=== PATIENT | female | born 1955 | race Caucasian/White ===

== ENCOUNTER → 2020-09-07 15:11 | Outpatient (CLI) | payer MEDICARE, SELFPAY ==
--- NOTE | 2020-09-07 15:21 | XR_ITS ---
PROCEDURE: XR FOOT WT BEARING LT 3V CLINICAL INDICATION: foot pain COMPARISON: No exams were available for comparison FINDINGS: No fracture or dislocation. No lytic or blastic change. There is normal mineralization. The joint spaces are well-preserved. No significant degenerative/arthritic changes. No erosive changes evident. Other findings:Calcaneal spur is noted. IMPRESSION: No acute findings. Dictated by: Yumiko Nguyen 09/07/2020 16:26 Yumiko Nguyen in OV 09/07/2020 16:26
--- NOTE | 2020-09-07 15:21 | XR_ITS ---
PROCEDURE: XR FOOT WT BEARING RT 3V CLINICAL INDICATION: foot pain COMPARISON: No exams were available for comparison FINDINGS: No fracture or dislocation. No lytic or blastic change. Mild osteopenia. Degenerative changes of the ankle joint. Calcaneal spur is noted. No significant soft tissue abnormality. IMPRESSION: Degenerative changes of the ankle joint. No acute fractures or dislocations. Osteopenia. Dictated by: Yumiko Nguyen 09/07/2020 16:26 Yumiko Nguyen in OV 09/07/2020 16:26
--- NOTE | 2020-09-07 15:21 | XR_ITS ---
PROCEDURE: XR ANKLE WT BEARING RT MIN 3V CLINICAL INDICATION: ankle pain COMPARISON: No exams were available for comparison FINDINGS: No acute fractures or dislocations. There are moderate to severe arthritic changes of the tibiotalar joint. Multiple subchondral cystic changes noted. Sclerosis in of the talar dome. Mild osteopenia is noted. Focal metallic density is noted within the lateral malleolus, likely sequela of prior injury. Calcaneal spur and Achilles tendon enthesopathy Calcaneal spurring is noted at the Achilles tendon insertion and the plantar fascia origin. Visualized soft tissues IMPRESSION: Are unremarkable. Sequela of prior injury. Moderate degenerative changes of the ankle joint. Dictated by: Yumiko Nguyen 09/07/2020 16:24 Yumiko Nguyen in OV 09/07/2020 16:24
--- NOTE | 2020-09-07 15:21 | XR_ITS ---
PROCEDURE: XR ANKLE WT BEARING LT MIN 3V CLINICAL INDICATION: ankle pain COMPARISON: No exams were available for comparison FINDINGS: No acute fractures or dislocations. Bone density is normal. The ankle mortise is intact and the lateral clear space is preserved. Sequela of old fracture of the left distal fibula. Calcaneal spurring is noted at the Achilles tendon insertion and the plantar fascia origin. No significant soft tissue abnormality is noted. IMPRESSION: No acute findings. Dictated by: Yumiko Nguyen 09/07/2020 16:23 Yumiko Nguyen in OV 09/07/2020 16:23
== END ==
PROVIDERS: PCP Internal Medicine; Visit Provider Podiatrist
DX: M25.572 Pain in left ankle and joints of left foot; M25.571 Pain in right ankle and joints of right foot; M79.672 Pain in left foot; M79.671 Pain in right foot
CPT/HCPCS: 73610; 73630

== ENCOUNTER → 2021-01-09 12:49 | Outpatient (CLI) | payer MEDICARE, SELFPAY ==
--- NOTE | 2021-01-09 12:51 | US_ITS ---
APPROVED REPORT Exam Type: Ankle to Brachial Index Medical Appointment Scheduler: Niecy Garcia RT(R) Indications Claudication: Right Rest Pain: Right chronic right leg pain post compound fracture of rt tibia >10 years ago. Risk Factors Hypertension Obesity Diabetes Pressures/Indices Right Indices Left Indices Brachial 140.00 mmHg Brachial 142.00 mmHg Low Thigh 151.00 mmHg 1.06 Low Thigh 148.00 mmHg 1.04 Calf 150.00 mmHg 1.06 Calf 152.00 mmHg 1.07 Ankle(PT) 152.00 mmHg 1.07 Ankle(PT) 153.00 mmHg 1.08 Ankle(DP) 142.00 mmHg 1.00 Ankle(DP) 140.00 mmHg 0.99 Digit 124.00 mmHg 0.87 Digit 106.00 mmHg 0.75 Findings RT BECKY=1.1 LT BECKY=1.1 RT TBI=0.9 LT TBI=0.8 Normal pulses Normal waveforms Conclusion RT BECKY=1.1 LT BECKY=1.1 RT TBI=0.9 LT TBI=0.8 Normal pulses Normal waveforms Normal appearing resting noninvasive lower extremity arterial study. Electronically signed by : Eric Mariee MD 01/09/2021 16:49:43
== END ==
PROVIDERS: Visit Provider Podiatrist
DX: R09.89 Other specified symptoms and signs involving the circulatory and respiratory systems (principal)
CPT/HCPCS: 93923

== ENCOUNTER → 2021-11-20 15:22 | Outpatient (CLI) | payer MEDICARE, SELFPAY ==
--- NOTE | 2021-11-20 15:27 | XR_ITS ---
FINAL REPORT CLINICAL HISTORY: cough FINDINGS: PA and lateral views of the chest are obtained. There is no prior exam for comparison. The cardiac and mediastinal silhouettes are within normal limits. The lungs are clear. There is no pleural effusion, pneumothorax, or acute osseous abnormality. IMPRESSION: No radiographic evidence of acute cardiac or pulmonary disease. Reviewed, Interpreted and Dictated by Susie Donaldson MD Transcribed by Roxy Umana Authenticated and [facility]
--- NOTE | 2021-11-20 15:27 | XR_ITS ---
FINAL REPORT CLINICAL HISTORY: heel pain FINDINGS: Axial and lateral views of the right calcaneus were obtained. There is no prior exam for comparison. There is no acute fracture or other acute osseous abnormality. There is degenerative joint disease. Calcaneal spurs are identified. The soft tissues are unremarkable. IMPRESSION: Degenerative joint disease without acute osseous abnormality. Reviewed, Interpreted and Dictated by Susie Donaldson MD Transcribed by Roxy Umana Authenticated and [facility]
--- NOTE | 2021-11-20 15:27 | XR_ITS ---
FINAL REPORT CLINICAL HISTORY: foot pain COMPARISON: 09/07/2020 FINDINGS: RIGHT FOOT Three views were obtained. There is no acute fracture or dislocation. The bones are osteopenic. There is mild joint degenerative disease, unchanged. There is no soft tissue abnormality. IMPRESSION: Degenerative joint disease, unchanged. Reviewed, Interpreted and Dictated by Susie Donaldson MD Transcribed by Roxy Umana Authenticated and [facility]
[2021-11-20 16:46] LABS: Basophils # 0.1 K/mm3 (0-0.2); Eosinophils # 0.5 K/mm3 (0.0-0.4); Eosinophils % 4.6 % (0.1-12.0); Hemoglobin 13.9 g/dL (12.2-16.2); Lymphocytes # 2.9 K/mm3 (0.7-4.5); Lymphocytes % 29.5 % (10-50); Mean Platelet Volume 7.3 fl (7.4-10.4); Monocytes # 0.4 K/mm3 (0.1-1.0); Monocytes % 4.2 % (1.7-9.3); Neutrophils # 5.9 K/mm3 (1.8-7.8); Neutrophils % 60.6 % (37.0-80.0); Platelet Count 272 K/mm3 (142-424); Red Blood Count 4.62 M/mm3 (4.20-5.40); Red Cell Distribution Width 13.3 % (11.5-17.5); White Blood Count 9.8 K/mm3 (4.8-10.8)
[2021-11-20 17:11] LABS: Alanine Aminotransferase 12 U/L (12-78); Albumin Level 3.9 g/dl (3.5-5.0); Albumin/Globulin Ratio 1.4 (1.1-1.8); Alkaline Phosphatase 97 U/L (38-126); Anion Gap 8.4 mEq/L (5-15); Aspartate Amino Transferase 21 U/L (14-36); Blood Urea Nitrogen 15 mg/dl (7-17); Calcium 9.2 mg/dl (8.4-10.2); Carbon Dioxide 27 mmol/L (22.0-30.0); Chloride 107 mmol/L (98-107); Estimated Glomerular Filt Rate 71 ml/min (>60); GFR (African American) 86 ML/MIN (>60); Globulin 2.7 g/dL (1.3-3.2); Glucose 128 mg/dl (74-100); Potassium 4.4 mmoL/L (3.5-5.1); Sodium 138 mmol/L (136-145); Total Protein,Serum 6.6 g/dl (6.3-8.2)
[2021-11-20 17:18] LABS: C-Reactive Protein 3.3 mg/L (0-4)
[2021-11-20 17:19] LABS: Bilirubin,Total < 0.1 mg/dl (0.2-1.3)
[2021-11-20 17:22] LABS: Hemoglobin A1C 6.4 % (4.0-6.0)
[2021-11-20 18:00] LABS: Erythrocyte Sedimentation Rate 20 mm/hr (0-30)
== END ==
PROVIDERS: PCP Internal Medicine; Visit Provider Podiatrist
DX: Z01.818 Encounter for other preprocedural examination (principal); E11.65 Type 2 diabetes mellitus with hyperglycemia; M79.671 Pain in right foot
CPT/HCPCS: 36415; 71046; 73630; 73650; 80053; 83036; 85025; 85651; 86140

== ENCOUNTER → 2021-12-17 11:57 | Outpatient (CLI) | payer MEDICARE, SELFPAY ==
--- NOTE | 2021-12-17 12:07 | ECG_ITS ---
APPROVED REPORT Exam: Resting ECG HR:56 bpm ECG Measurements Heart Rate 56 AXES FL 160 P 49 QRSd 144 QRS 6 QT 434 T 5 QTc 426 Conclusion SINUS BRADYCARDIA WITH SINUS ARRHYTHMIA RBBB ABNORMAL ECG UNCONFIRMED REPORT Electronically signed by : Gunnar Winter MD 12/17/2021 12:45:48
--- NOTE | 2021-12-17 12:34 | XR_ITS ---
FINAL REPORT CLINICAL HISTORY: PREOP TESTING COMPARISON: September 07, 2020 FINDINGS: RIGHT ANKLE Three views of the right ankle were obtained. There is no acute fracture or dislocation. There is moderate narrowing of the mortise. There is hypertrophic changes at the talonavicular joint. There is a small to moderate plantar spur. IMPRESSION: Degenerative changes with no acute bony abnormality. Reviewed, Interpreted and Dictated by Cristino Solorio MD Transcribed by Moriah Burnett Authenticated and [facility]
== END ==
PROVIDERS: Visit Provider Podiatrist
DX: Z01.818 Encounter for other preprocedural examination (principal); Z20.822 Contact with and (suspected) exposure to COVID-19; M19.071 Primary osteoarthritis, right ankle and foot
CPT/HCPCS: 73610; 93005; C9803; U0003; U0005

== ENCOUNTER 2021-12-19 14:56 | Observation (INO) | payer MEDICARE, SELFPAY ==
[2021-12-17 09:29] VITALS: BMI 36.0
[2021-12-19] VITALS (21 sets, daily range): BP systolic 113–153; BP diastolic 57–83; PULSE 62–79; RESP 10–18; TEMP 36.5–43; O2SAT 93–100; BMI 38.1
[2021-12-19 10:03] LABS: POC Glucose,Bedside 138 (70-110)
--- NOTE | 2021-12-19 12:09 | EXP.ANES.CKL ---
[facility] Medical History Cataract Diabetes mellitus, type 2 Hyperlipidemia Hypertension Sacral nerve stimulator present Surgical History (Updated 12/19/21 @ 09:52 by Afsaneh Martinez, RN) History of hysterectomy History of lumpectomy Hx of arthroscopy Family History (Updated 12/19/21 @ 09:52 by Afsaneh Martinez, RN) Other Family history of cancer Family history of diabetes mellitus type II Family history of myocardial infarction Social History (Updated 12/19/21 @ 09:52 by Afsaneh Martinez RN) Smoking Status: Never smoker alcohol intake: never substance use type: denies use current occupational status: retired household members: spouse housing: house caffeine: No
--- NOTE | 2021-12-19 12:15 | SUR.OPER ---
1215- family updated of pt current status at this time via aracely briones in preop
--- NOTE | 2021-12-19 13:20 | XR_ITS ---
FINAL REPORT CLINICAL HISTORY: ANKLE FUSION in OR 1.43 fluoro time FINDINGS: FLUORO TIME PROCEDURE: Fluoroscopy in the operating room. FINDINGS: Fluoroscopy time was provided by the radiology department for the clinical service. Three spot films were obtained. Fluoroscopy exposure time: 1:32 minutes IMPRESSION: See above Reviewed, Interpreted and Dictated by Cristino Solorio MD Transcribed by Melba Mosquera Authenticated and . [facility]
--- NOTE | 2021-12-19 14:17 | EXP.ANES.I ---
[facility] Anesthesia Record Part I Anesthesia Record I Intake, IV Amount: 1,200 Estimated blood loss (mL): 20 Urine output (mL): 300 Blood Pressure: 133/64 SaO2: 93 Pulse Rate: 72 Respiratory Rate: 10 Temperature: 98.3 F Patient is:: Drowsy Stable to PACU at:: 14:09
--- NOTE | 2021-12-19 14:24 | XR_ITS ---
FINAL REPORT CLINICAL HISTORY: md order, post op views COMPARISON: December 17, 2021 FINDINGS: RIGHT ANKLE Three views of the right ankle were obtained. There has been interval internal fixation. There is a side plate and screws securing the anterior mortise. There is an overlying cast. All of which are new since the prior exam. IMPRESSION: Postoperative changes as above. Reviewed, Interpreted and Dictated by Cristino Solorio MD Transcribed by Moriah Burnett Authenticated and [facility]
--- NOTE | 2021-12-19 14:24 | XR_ITS ---
FINAL REPORT CLINICAL HISTORY: MD order, post op views COMPARISON: November 20, 2021 FINDINGS: RIGHT FOOT Three views of the right foot demonstrate and overlying cast which is new since the prior exam. There is orthopedic hardware at the ankle. There is no acute fracture or dislocation. There are mild hypertrophic changes at the talonavicular joint. The soft tissues are unremarkable. IMPRESSION: Postoperative and degenerative changes with no acute bony abnormality. Reviewed, Interpreted and Dictated by Cristino Solorio MD Transcribed by Moriah Burnett Authenticated and . [facility]
[2021-12-19 14:37] LABS: Microscopic,Cath URINE MICROSCOPIC (MICROSCOPIC)
--- NOTE | 2021-12-19 14:39 | SUR.PHASEI ---
1410- blood sugar at this time is 218. 1428- itzel anand ordering 8units of humalog insulin at this time. 1440- blood sugar at this time is 224- no other orders requested by itzel anand. He states he wants her to be rechecked for continual monitoring on the floor.
[2021-12-19 14:45] LABS: POC Glucose,Bedside 218 (70-110)
[2021-12-19 14:45] LABS: POC Glucose,Bedside 224 (70-110)
--- NOTE | 2021-12-19 14:46 | EXP.HPDC ---
General Admission date:: 12/19/21 Discharge date: 12/20/21 *Admission Date: 12/19/21 *Chief complaint: Right ankle osteoarthritis *History of present illness: Patient is a 66-year-old diabetic female who presents today with chronic right ankle arthritis pain and impingement. She had a right ankle fusion procedure and is admitted for 23-hour observation and pain management. Plan to consult Dr Winter for medical mgmt of DM. PFSH [facility] Medical History (Updated 12/19/21 @ 15:42 by Peggy Pereira DPM) Cataract Diabetes mellitus, type 2 Hyperlipidemia Hypertension Sacral nerve stimulator present Surgical History (Updated 12/19/21 @ 15:42 by Peggy Pereira DPM) History of hysterectomy History of lumpectomy Hx of arthroscopy Family History Family history of cancer Family history of diabetes mellitus type II Family history of myocardial infarction Social History Smoking Status: Never smoker alcohol intake: never substance use type: denies use current occupational status: retired household members: spouse housing: house caffeine: No Review of Systems Review of Systems Review of systems:: pertinent systems reviewed and negative unless documented below Constitutional Constitutional: Reports system reviewed and no additional complaints, except as documented Eyes Eyes: Reports system reviewed and no additional complaints, except as documented ENT Ears, Nose, Mouth, and Throat: Reports system reviewed and no additional complaints, except as documented *Cardiovascular Cardiovascular: Reports system reviewed and no additional complaints, except as documented, Denies chest pain and Denies dyspnea *Respiratory Respiratory: Reports system reviewed and no additional complaints, except as documented and Denies dyspnea *Gastrointestinal Gastrointestinal: Reports system reviewed and no additional complaints, except as documented *Genitourinary Genitourinary: Reports system reviewed and no additional complaints, except as documented *Musculoskeletal Musculoskeletal: Reports system reviewed and no additional complaints, except as documented Comments: RLE surgery: decreased light touch sensation and motor function secondary to nerve block Integumentary/Breasts Skin/Breast: Reports system reviewed and no additional complaints, except as documented *Neurologic Neurologic: Reports system reviewed and no additional complaints, except as documented Psychiatric Psychiatric: Reports system reviewed and no additional complaints, except as documented Exam Data for Last 24 hours Vital signs and Labs for Last 24 Hours: Temp Pulse Resp BP Pulse Ox 98.3 F 71 12 136/72 96 12/19/21 14:29 12/19/21 14:29 12/19/21 14:29 12/19/21 14:29 12/19/21 14:29 Laboratory Results - last 24 hr 12/19/21 08:59: POC Glucose 138 H 12/19/21 14:20: POC Glucose 218 H 12/19/21 14:38: POC Glucose 224 H I & O for Last 24 hours: Intake & Output 12/17/21 12/18/21 12/19/21 12/20/21 11:59 11:59 11:59 11:59 Intake Total 1200 / 1200 Balance 1200 / 1200 Weight 210 lb Constitutional Constitutional: no acute distress *Routine HEENT Exam Head: Present normocephalic Eye: Present EOMI and PERRL ENT: Present mucous membranes moist *Routine Neck Exam Neck: Present supple; Absent lymphadenopathy *Routine Respiratory Exam Respiratory: Present CTA bilaterally *Routine Cardiovascular Exam Cardiovascular: Present RRR *Routine Abdominal Exam Abdominal: Present soft and normoactive bowel sounds *Routine Rectal Exam Rectal:: deferred *Routine Genitalia Exam Genitalia:: deferred *Routine Extremities Exam Extremities: Present pulses intact and normal capillary refill; Absent cyanosis or clubbing *Routine Skin Exam Skin: Present intact and warm *Routine Neurological Exam Neurological: Present alert, oriented X3, sensory deficit (RLE s
--- NOTE | 2021-12-19 14:51 | SUR.PHASEI ---
1448- detailed report called to aracely beth 1450- pt left in stable condition with aracely beth by aracely weldon and vamsirn
--- NOTE | 2021-12-19 14:57 | EXP.OP.NOTE ---
Date of procedure: 12/19/21 Pre-op Diagnosis:: 1. Primary osteoarthritis, right ankle and foot? M19.071 2. Chronic pain of right ankle? M25.571; G89.29 3. Impingement of right ankle joint? M25.871 4. Acquired equinus deformity 5. Synovitis of right ankle? M65.9 6. Tailor's bunion of right foot? M21.621 7. Exostosis of right foot? M89.8X7 8. Right ankle instability? M25.371 9. Callus of foot? L84 10. Type 2 diabetes mellitus with hyperglycemia, without long-term current use of insulin? E11.65 11. Osteopenia determined by x-ray? M85.80 12. Obesity, Class II, BMI 35-39.9? E66.9 13. Vitamin D deficiency? E55.9 Post-op Diagnosis:: Same Procedure performed:: 1. Right ankle arthrodesis (43179) 2. Right excision of bone spur tibia (45641), fibula (06138) 3. Excision or curettage of bone cyst/benign tumor tibia with allograft (62287) 4. BMA (02502) 5. Synovectomy flexor tendon (44678), ankle synovectomy 6. Partial excision talus (16368) 7. Ostectomy fifth metatarsal head (89472) 8.?Right CAITIE (59631) 9. Primary repair extensor tendon 10. Callus debridement x1 11. Application of graft (43390) Surgeon:: Peggy Pereira DPM Paper Sheeter(s):: SAMSON Hammer TYPEWRITER RIBBON WINDER:: Other (Que Lopez) Anesthesia: GETA and regional (right pop-saph block) Estimated blood loss (mL): 30 Clinical Note:: Patient is a 66-year-old diabetic female who presents with chronic right ankle pain arthritis and impingement.? She does have a history of multiple right ankle surgeries including fracture repair with hardware removal. Denies history of infection. Her treatment so far has included: Modification of shoe gear, modification of activity, custom orthotics, custom AFO (Filemon brace), quadra steps C, ice, elevation, oral/topical NSAIDs, cortisone/steroid injections, muscular skeletal laser treatments (x6), physical therapy before and after the hardware removal procedure. After a long discussion with the patient in regards to the conservative versus surgical treatment for the arthritic deformity, the patient has elected to proceed with surgery because they have failed conservative treatment and continue to have pain and worsening symptoms affecting daily activities. Discussed she is not a candidate for a total ankle replacement due to her diabetes.? We discussed an ankle fusion. I explained the subtalar joint appears ok. Some DJD to talonavicular joint. However no pain to this area just bone spurring-discussed removing exostosis. Discussed right ankle arthrodesis, synovectomy. The ankle fusion will also address chronic instability. The patient has been instructed on the planned procedure, all risk versus benefits of the procedure discussed.? These include but are not limited to: bleeding, infection, nerve and blood vessel damage, need for further surgery, delay in healing of soft tissue or bone, failure of bones to heal, non-union, mal-union, failure of the implant, prolonged pain and recovery, CPRS/RSD, DVT and anesthetic complications. No guarantees were given. All questions fully answered. The patient verbalized understanding and agreed to proceed with surgery. Written consent was obtained. Operative findings:: Significant synovitis noted to the right ankle joint. Fibrotic scar tissue, consistent with several prior ankle surgeries. Synovitis noted to the extensor tendon. There was a tear noted to the extensor tendon which was repaired with suture without complication. CAITIE adequately address the equinus contracture. Subtalar joint range of motion adequate post ankle surgery. Tailor's bunionette noted. Overall the surgery to go 1 hour longer than normal due to history of prior surgeries, more extensive dissection due to scar tissue/synovitis, decreased bone density consistent with osteopenia and vitamin D deficiency. Operative note:: On this date and time patient was deemed an appropriate surgical candidate. Preop regional popliteal nerve block performed by anesthesia. With informed consent signed
[2021-12-19 15:05] LABS: Appearance,Urine/Cath CLEAR (Clear); Bilirubin,Cath Negative (Negative); Blood, Urine/Cath Negative (Negative); Color,Urine/Cath YELLOW (Yellow); Glucose,Urine/Cath (UA) Negative (Negative); Ketones,Urine/Cath Negative (Negative); Leukocyte Esterase,Cath Negative (Negative); Nitrate,Cath Negative (Negative); PH,Urine/Cath 6.5 (5.0-8.5); Protein,Urine/Cath Negative (Negative); Urobilinogen,Cath 0.2 EU/dl (0.2)
[2021-12-19 17:20] LABS: RBC,Urine/Cath Occasional # /hpf (0-3); WBC,Urine/Cath Occasional #/hpf (0-3)
[2021-12-19 17:57] LABS: POC Glucose,Bedside 214 (70-110)
[2021-12-19 20:34] LABS: POC Glucose,Bedside 231 (70-110)
[2021-12-20] VITALS: BP 141/55; PULSE 65; RESP 17; TEMP 36.6; O2SAT 98
[2021-12-20 04:00] VITALS: BP 120/59; PULSE 61; RESP 18; TEMP 36.7; O2SAT 96
--- NOTE | 2021-12-20 04:21 | PC.NURSE ---
Pt is alert and oriented x4, pt has complained of pain throughout the night, treated per mar. Pt right ankle post op, dressing CDI, polar pack applied. Pt has had no other complaints. Pt abdomen soft and nontender, bowel sounds active. Pt O2 sat >95% on room air. Call light in reach and working.
[2021-12-20 05:00] VITALS: BMI 38.9
[2021-12-20 06:22] LABS: Basophils # 0.1 K/mm3 (0-0.2); Basophils % 0.5 % (0.1-2.0); Eosinophils % 0.2 % (0.1-12.0); Hematocrit 36.2 % (37.0-47.0); Hemoglobin 11.9 g/dL (12.2-16.2); Mean Corpuscular HGB Conc 32.9 g/dL (31.8-35.4); Mean Corpuscular Hemoglobin 30.7 pg (27.0-31.2); Mean Corpuscular Volume 93.2 fl (81-99); Monocytes # 0.8 K/mm3 (0.1-1.0); Monocytes % 5.4 % (1.7-9.3); Neutrophils # 11.1 K/mm3 (1.8-7.8); Neutrophils % 79.8 % (37.0-80.0); Platelet Count 300 K/mm3 (142-424); Red Blood Count 3.88 M/mm3 (4.20-5.40); White Blood Count 13.9 K/mm3 (4.8-10.8)
[2021-12-20 06:28] LABS: POC Glucose,Bedside 149 (70-110)
[2021-12-20 06:37] LABS: Chloride 104 mmol/L (98-107); Sodium 138 mmol/L (136-145)
[2021-12-20 06:38] LABS: Potassium 3.9 mmoL/L (3.5-5.1)
[2021-12-20 06:40] LABS: Alanine Aminotransferase 13 U/L (12-78); Albumin Level 3.5 g/dl (3.5-5.0); Albumin/Globulin Ratio 1.3 (1.1-1.8); Alkaline Phosphatase 95 U/L (38-126); Anion Gap 10.9 mEq/L (5-15); Aspartate Amino Transferase 27 U/L (14-36); Carbon Dioxide 27 mmol/L (22.0-30.0); Globulin 2.8 g/dL (1.3-3.2); Total Protein,Serum 6.3 g/dl (6.3-8.2)
[2021-12-20 06:45] LABS: Blood Urea Nitrogen 15 mg/dl (7-17)
[2021-12-20 06:46] LABS: Glucose 170 mg/dl (74-100)
[2021-12-20 07:00] LABS: Bilirubin,Total < 0.1 mg/dl (0.2-1.3)
[2021-12-20 07:12] LABS: Calcium 8.3 mg/dl (8.4-10.2)
[2021-12-20 07:37] LABS: Creatinine Clearance Estimated 88 mL/min (50-200); Estimated Glomerular Filt Rate 71 ml/min (>60); GFR (African American) 86 ML/MIN (>60)
[2021-12-20 07:57] LABS: Coronavirus 19, PCR Not Detected (NotDetected); Influenza A, PCR Not Detected (NotDetected); Influenza B, PCR Not Detected (NotDetected)
[2021-12-20 07:59] VITALS: BP 127/57; PULSE 57; RESP 17; TEMP 36.6; O2SAT 100
--- NOTE | 2021-12-20 09:50 | CARE MANAGER ---
Patient will require BSC upon discharge. Information sent to [facility]. Patient did not want shower chair. She states her shower has a bench in it. RUDY Yusuf
--- NOTE | 2021-12-20 11:02 | HMH.PTEV ---
Physical Therapy Evaluation Rehab PT IP Evaluation Start: 12/19/21 14:35 Freq: ONCE Status: Active Protocol: Document 12/20/21 10:16 JOSERICH (Rec: 12/20/21 11:02 RUIZ [id number]) Subjective/History History History This is the physical therapy IP initial evaluation for Minal Kulkarni, a 66 y/o female s/p R ankle arthrodesis for chronic R ankle arthritis pn & impingement. Pt has h/o Type 2 DM, hyperlipidemia, and hypertension. Written by Judie Levin, CORINA Subjective Subjective Pt lives w/ retired in multi-story house which doesn 't require going up any steps to access bedroom, kitchen, etc. Pt has a walker and knee scooter AD at-home in preparation for her post-op rehabilitative process. Rehab PT IP Eval Objective Appearance Patient Behavior Appropriate,Cooperative Patient Orientation Person,Place,Name,Age,Year, Situation Difficulty following instructions none Speech Pattern Clear,Appropriate,Baseline Function Ambulation Patient Able to Ambulate Yes Ambulation Observation IP General Gait Pattern Observation Decrease Weight Bear (R) Ambulation Distance (feet) 5 Ambulation Assistive Device Rolling Walker Ambulation Ability Supervision/Stand by Balance Ability to Arise Able, uses arms to help Sitting Balance Steady, safe Standing Balance Steady, wide stance Dynamic Sitting Balance Ability Normal Dynamic Standing Balance Ability Fair Transfers Bed Transfer Ability Independent,Supervision/Stand by Chair Transfer Ability Independent,Supervision/Stand by Sit to Stand Bed Transfer Ability Supervision/Stand by ROM RLE PT ROM Status ABN Abnormal ROM Comment ABN 2nd to sx, pn, cast Rehab PT IP prob,goals,plan Problems Date of Evaluation: 12/20/21 PT IP Problems Transfers,Gait,Balance,Self care,Safety Rehab Potential Rehab Potential Fair Equipment Needs Assistive Devices Rolling / Wheeled Walker, Wheelchair Plan PT Intervention Plan Transfers,Gait,Balance,Self
--- NOTE | 2021-12-20 11:17 | PC.NURSE ---
Spoke with care management stated that Dr. Pereira did not want home health PT. We are waiting for Nohelia to bring bedside commode before pt is D/C'd.
--- NOTE | 2021-12-20 11:26 | PC.NURSE ---
Spoke with clinic pharmacy they are going to bring medication up to pt in the room.
--- NOTE | 2021-12-20 11:27 | PC.NURSE ---
Called and spoke with Vianey in specialty clinic to let Dr. Pereira know about PT Ayala.
--- NOTE | 2021-12-24 07:20 | P.PNANES_ITS ---
[facility] Anesthesia Record Part II Anesthesia Record Part II Discharge Time: 14:49 Destination: Obstetric PACU nurse assessment reviewed?: Yes Patient Condition:: Good Anesthesia Complications:: None Swallowing reflex intact?: Yes Cyanosis?: No Blood Pressure: 132/71 Pulse Rate: 70 Temperature: 98.5 F Mental Status: Alert & Oriented Pain level:: 0 Nausea and/or vomitting:: None Intake, IV Amount: 0
[2021-12-24 07:21] VITALS: BP 132/71; PULSE 70; TEMP 36.9
== END 2021-12-20 12:15 | disposition home or self-care (01) ==
LOC: 2ND 14:57
PROVIDERS: Admitting Provider Podiatrist; PCP Internal Medicine; Visit Provider Podiatrist
DX: M19.071 Primary osteoarthritis, right ankle and foot (principal); M21.621 Bunionette of right foot; Z79.84 Long term (current) use of oral hypoglycemic drugs; M25.871 Other specified joint disorders, right ankle and foot; E11.65 Type 2 diabetes mellitus with hyperglycemia; M25.371 Other instability, right ankle; E55.9 Vitamin D deficiency, unspecified; Z20.822 Contact with and (suspected) exposure to COVID-19; M89.8X7 Other specified disorders of bone, ankle and foot
CPT/HCPCS: 27870; 27638; 28086; 28113; G0378; 36415; 73610; 73630; 80053; 81001; 82962; 85025; 97161; C1713; C1734; C1762; C1776; C9803; J0131; J2405; Q4211; U0003; U0005

== ENCOUNTER → 2022-01-15 08:07 | Outpatient (CLI) | payer MEDICARE, SELFPAY ==
--- NOTE | 2022-01-15 08:12 | XR_ITS ---
FINAL REPORT CLINICAL HISTORY: postop X 1 month COMPARISON: 12/19/2021 FINDINGS: Right foot Three views were obtained. There are sideplate and screws securing the distal tibia to the talus. Detail is partially obscured by overlying cast. The hardware appears unchanged in position since previous. IMPRESSION: Postsurgical changes. Reviewed, Interpreted and Dictated by Cristino Solorio MD Transcribed by Roxy Umana Authenticated and [facility]
== END ==
PROVIDERS: Visit Provider Podiatrist
DX: Z98.890 Other specified postprocedural states (principal); M79.671 Pain in right foot
CPT/HCPCS: 73630

== ENCOUNTER → 2022-02-04 08:27 | Outpatient (CLI) | payer MEDICARE, SELFPAY ==
--- NOTE | 2022-02-04 08:37 | XR_ITS ---
FINAL REPORT CLINICAL HISTORY: postop,,pain COMPARISON: December 19, 2021 FINDINGS: RIGHT ANKLE Three views of the right ankle were obtained. There are postoperative changes of the distal tibia, distal fibula and talus with tibiotalar effusion. A screw plate and multiple screws are present. Bony alignment is stable. There are mild and moderate degenerative changes. There is soft tissue swelling of the ankle. IMPRESSION: Postoperative changes as above. Swelling with no new bony abnormality identified. Reviewed, Interpreted and Dictated by Cortez Teran III, MD Transcribed by Melba Mosquera Authenticated and [facility]
== END ==
PROVIDERS: PCP Internal Medicine; Visit Provider Podiatrist
DX: Z98.890 Other specified postprocedural states (principal); M25.571 Pain in right ankle and joints of right foot
CPT/HCPCS: 73610; 87070; 87077; 87205

== ENCOUNTER → 2022-02-04 09:47 | Outpatient (CLI) | payer MEDICARE, SELFPAY | PROVIDERS: Visit Provider Podiatrist | DX: M25.571 Pain in right ankle and joints of right foot (principal) ==

== ENCOUNTER → 2022-02-21 11:10 | Outpatient (CLI) | payer MEDICARE, SELFPAY | PROVIDERS: Visit Provider Podiatrist | DX: T81.31XD Disruption of external operation (surgical) wound, not elsewhere classified, subsequent encounter (principal) | CPT/HCPCS: 87070; 87077; 87186; 87205 ==

== ENCOUNTER 2022-02-28 11:44 | Day surgery (SDC) | payer MEDICARE, SELFPAY ==
[2022-02-26 10:24] VITALS: BMI 36.0
[2022-02-28] VITALS (8 sets, daily range): BP systolic 130–192; BP diastolic 78–95; PULSE 52–58; RESP 16–18; TEMP 36.7–36.8; O2SAT 95–99
--- NOTE | 2022-02-28 12:10 | XR_ITS ---
FINAL REPORT CLINICAL HISTORY: Pre-op, htn, COMPARISON: 11/20/2021 FINDINGS: A single portable view of the chest was obtained. The heart size and pulmonary vascularity are within normal limits. The mediastinum is within normal limits. No acute pulmonary abnormality is identified. The bony thorax is intact. IMPRESSION: No active cardiopulmonary disease. Reviewed, Interpreted and Dictated by Cortez Teran III, MD Transcribed by Melba Mosquera Authenticated and [facility]
--- NOTE | 2022-02-28 12:13 | SUR.PREOP ---
Pt progress number given to , Prakash, verbalized understanding of system.
--- NOTE | 2022-02-28 12:14 | ECG_ITS ---
APPROVED REPORT Exam: Resting ECG HR:55 bpm ECG Measurements Heart Rate 55 AXES OR 191 P 54 QRSd 157 QRS 0 QT 457 T 2 QTc 446 Conclusion SINUS BRADYCARDIA RBBB] ABNORMAL ECG UNCONFIRMED REPORT Electronically signed by : Gunnar Winter MD 03/21/2022 20:21:45
[2022-02-28 12:15] LABS: POC Glucose,Bedside 120 (70-110)
--- NOTE | 2022-02-28 12:25 | P.PN_ITS ---
PFSH PFS Medical History Cataract Diabetes mellitus, type 2 Hyperlipidemia Hypertension Hypothyroid Sacral nerve stimulator present Surgical History History of hysterectomy History of lumpectomy Hx of arthroscopy Family History Other Family history of cancer Family history of diabetes mellitus type II Family history of myocardial infarction Social History Smoking Status: Never smoker alcohol intake: never substance use type: denies use current occupational status: retired Travel in the last 8 weeks: None household members: spouse housing: house caffeine: No [facility] Anesthesia Checklist Patient Identification Patient Identification: Arm Band and Verbal (Name & ) Structural Data Admitted From: Home Planned Operative Procedure/s: I & D foot Consent for Planned Operative Procedure(s) Verified: Yes NPO Status Verified Time NPO: 00:00 Additional verifications Anesthesia Reactions: No Hx Blood Transfusions: No Blood Transfusion Reaction: No Airway Assessment C-Spine Mobility Assessed: Yes TMJ Mobility Assessed: Yes Dentition: Good Dentition Neurological Assessment Level of Consciousness: Awake Hx Seizures: No Numbness or tingling in extremities: Yes Anesthesia Plan Anesthesia Risk discussed: Yes Anesthesia Plan: Verified ASA Class: III Anesthesia Type: General
--- NOTE | 2022-02-28 14:21 | XR_ITS ---
FINAL REPORT CLINICAL HISTORY: Post op wound debridement COMPARISON: February 04, 2022 FINDINGS: Right ankle Three views were obtained. There is interval postoperative change with soft tissue swelling and multiple surgical bibi. There is stable postoperative change involving the tibiotalar joint and distal fibula. There is a sideplate and multiple screws. IMPRESSION: Interval soft tissue swelling and overlying skin bibi. Stable sideplate and screws involving the distal lower leg. Reviewed, Interpreted and Dictated by Cortez Teran III, MD Transcribed by Jovany Pop Authenticated and [facility]
--- NOTE | 2022-02-28 14:34 | EXP.OP.NOTE ---
Date of procedure: 02/28/22 Pre-op Diagnosis:: Right ankle wound dehiscence Right ankle open wound x2 S/p right ankle arthrodesis on 12/19/21 Post-op Diagnosis:: Same Procedure performed:: Right ankle wound debridement x2 Right ankle I&D Application of graft (Integra) Surgeon:: Peggy Pereira DPM TRAFFIC SAFETY ADMINISTRATOR:: Angie Ma Anesthesia: MAC and local (20cc 0.5% marcaine plain) Estimated blood loss (mL): 20 Clinical Note:: Patient is a 67-year-old diabetic female who had an ankle fusion 12/19/2021. About 6 weeks after surgery patient had wound dehiscence which started after patient bathed and showered and left the Steri-Strips intact for 2-3 weeks. Discussed risks and benefits of wound including but not limited to infection. We discussed that if there is infection and it seats deep it can cause a hardware infection which may lead to osteomyelitis, non-union of fusion site, which may lead to hardware removal with the need for oral versus IV antibiotic therapy.? Discussed her co-morbidities of diabetes and edema be contributing to the delayed healing. Discussed importance of blood sugar control. Patient understands that they could have wound healing complications including delayed healing and infection. We discussed that if the wound does not heal, it is possible that they may need further debridement or surgery. Discussed if the patient gets a deep infection into the bone she may need hardware removal and uncontrolled infections could result in partial loss of foot or loss of leg. We discussed the risks and benefits in great detail. Other surgical risks include: prolonged pain and swelling, further infection requiring oral or IV antibiotics, delay in healing of soft tissue or bone, nerve or blood vessel damage, CRPS/RSD, DVT, anesthesia complications, and even . All questions answered. Patient verbalized understanding. Consent obtained. Medical clearance per Dr. Blair 02/27/2022. PCP did recommend hyperbaric oxygen. Patient would like to try that in combination with the wound debridement and graft application. We will make the referral for [facility]. Operative findings:: Right anterior ankle wound noted centrally. Central anterior ankle has no maceration but some periwound erythema noted. No drainage expressed. There is exposed tibialis anterior tendon. The central wound has fibrotic eschar. Smaller wound noted to the superior lateral most aspect of the incision. The skin tissue was very fragile and peeling. There was some bruising discoloration post debridement. Post debridement: Right central anterior ankle wound: 4.3 x 3.6 x 1.0cm, 60% yellow fibrotic, 40% granular, with exposed extensor tendon/deep fascia over the anterior ankle plate. No exposed bone. Post: Right superior lateral ankle wound: 0.2 x 0.2 x 0.1cm, 100% granular, thru skin into/including subq. Concern over her lack of skin coverage, hence use of graft. Operative note:: On this date and time patient was deemed an appropriate surgical candidate. With informed consent signed, the patient was taken to the local procedure operating theater room. The patient was positioned supine. MAC anesthesia was induced. No tourniquet used. Pre-op right ankle block given with 20 cc 0.5% marcaine plain. IV ceftazidime 2g was infused. Right ankle wound debridement: The right extremity was prepped and draped in normal sterile fashion. Attention was directed to the superior lateral ankle where a small wound was noted beside the main wound dehiscence. Preoperatively the wound was 50% granular and 50% fibrotic yellow tissue. Curette, 15 blade forceps used to sharply excisionally do bride the wound through skin into subcutaneous tissue. Post debridement wound was 100% granular and measured 0.2 x 0.2 x 0.1 cm deep. It did not extend to deep fascia or to the tibia bone. No necrotic tissue noted Right central ankle wound dehiscence, wound debridement: Attention was then directed to the central anteri
--- NOTE | 2022-02-28 14:50 | SUR.PHASEII ---
Notified Dr. Pereira of pt's pain, new order noted.
== END 2022-02-28 15:44 | disposition home or self-care (01) ==
PROVIDERS: Visit Provider Podiatrist
PROC: (CPT 11042; principal; 2022-02-28 13:00)
DX: T81.31XA Disruption of external operation (surgical) wound, not elsewhere classified, initial encounter (principal); L03.115 Cellulitis of right lower limb; E11.42 Type 2 diabetes mellitus with diabetic polyneuropathy; Z79.84 Long term (current) use of oral hypoglycemic drugs; Z79.899 Other long term (current) drug therapy
CPT/HCPCS: 11042; 11044; 15275; 71045; 73610; 82962; 87070; 87077; 87186; 87205; 93005; 96374; J3370; Q4104

== ENCOUNTER → 2022-03-14 10:38 | Outpatient (CLI) | payer MEDICARE, SELFPAY ==
--- NOTE | 2022-03-14 10:42 | XR_ITS ---
FINAL REPORT CLINICAL HISTORY: diabetic ulcer rt foot FINDINGS: RIGHT FOOT Three views of the right foot demonstrate no acute fracture or dislocation. The bones are osteopenic. The joint spaces are preserved. There is soft tissue swelling over the dorsum of the foot measuring 2 cm. Please see ankle report. IMPRESSION: Osteopenia. Soft tissue swelling over the dorsum of the foot with no acute bony abnormality. Reviewed, Interpreted and Dictated by Cristino Solorio MD Transcribed by Melba Mosquera Authenticated and [facility]
--- NOTE | 2022-03-14 10:42 | XR_ITS ---
FINAL REPORT CLINICAL HISTORY: diabetic ulcer FINDINGS: RIGHT ANKLE Three views of the right ankle were obtained. A screw plate and screw is present securing the anterior tibia to the talus. A fusion screw is present longitudinally in the talus. A 2nd screw is securing the distal fibula to the distal tibia. There are overlying skin bibi. There are advanced hypertrophic changes at the mortise. There is moderate soft tissue swelling about the ankle. IMPRESSION: Postoperative changes as above with advanced hypertrophic changes at the mortise and moderate soft tissue swelling. Reviewed, Interpreted and Dictated by Cristino Solorio MD Transcribed by Melba Mosquera Authenticated and [facility]
[2022-03-14 12:02] LABS: Basophils # 0.1 K/mm3 (0-0.2); Basophils % 1.2 % (0.1-2.0); Eosinophils # 0.6 K/mm3 (0.0-0.4); Eosinophils % 4.8 % (0.1-12.0); Hematocrit 43.5 % (37.0-47.0); Hemoglobin 14.3 g/dL (12.2-16.2); Lymphocytes # 3.4 K/mm3 (0.7-4.5); Lymphocytes % 29.6 % (10-50); Mean Corpuscular HGB Conc 32.8 g/dL (31.8-35.4); Mean Corpuscular Volume 91.6 fl (81-99); Mean Platelet Volume 8.2 fl (7.4-10.4); Monocytes # 0.5 K/mm3 (0.1-1.0); Monocytes % 4.5 % (1.7-9.3); Neutrophils # 6.9 K/mm3 (1.8-7.8); Neutrophils % 59.9 % (37.0-80.0); Platelet Count 356 K/mm3 (142-424); Red Blood Count 4.76 M/mm3 (4.20-5.40); White Blood Count 11.5 K/mm3 (4.8-10.8)
[2022-03-14 12:38] LABS: Alanine Aminotransferase 12 U/L (12-78); Albumin Level 4.4 g/dl (3.5-5.0); Albumin/Globulin Ratio 1.6 (1.1-1.8); Alkaline Phosphatase 114 U/L (38-126); Anion Gap 17.2 mEq/L (5-15); Aspartate Amino Transferase 22 U/L (14-36); Bilirubin,Total 0.2 mg/dl (0.2-1.3); Blood Urea Nitrogen 19 mg/dl (7-17); Calcium 9.7 mg/dl (8.4-10.2); Carbon Dioxide 26 mmol/L (22.0-30.0); Chloride 102 mmol/L (98-107); Estimated Glomerular Filt Rate 71 ml/min (>60); GFR (African American) 86 ML/MIN (>60); Globulin 2.8 g/dL (1.3-3.2); Glucose 68 mg/dl (74-100); Potassium 4.2 mmoL/L (3.5-5.1); Sodium 141 mmol/L (136-145); Total Protein,Serum 7.2 g/dl (6.3-8.2)
[2022-03-14 12:46] LABS: C-Reactive Protein 4.8 mg/L (0-4)
[2022-03-14 13:52] LABS: Erythrocyte Sedimentation Rate 20 mm/hr (0-30)
== END ==
PROVIDERS: Visit Provider Podiatrist
DX: E11.622 Type 2 diabetes mellitus with other skin ulcer (principal); L97.319 Non-pressure chronic ulcer of right ankle with unspecified severity; Z98.1 Arthrodesis status; Z79.84 Long term (current) use of oral hypoglycemic drugs
CPT/HCPCS: 36415; 73610; 73630; 80053; 85025; 85651; 86140

== ENCOUNTER → 2022-03-20 15:16 | Outpatient (CLI) | payer MEDICARE, SELFPAY | PROVIDERS: Visit Provider Podiatrist | DX: T81.31XA Disruption of external operation (surgical) wound, not elsewhere classified, initial encounter (principal) | CPT/HCPCS: 87070; 87205 ==